=== PATIENT | female | born 1960 | race Caucasian/White ===

== ENCOUNTER 2016-11-20 14:35 | Outpatient (CLI) | payer OTHER ==
[2016-11-20 16:09] LABS: Hematocrit 38.9 % (36.0-47.0); Mean Platelet Volume 7.6 fL (7.4-10.4); White Blood Cell (WBC) Count 9.6 thou/uL (4.8-10.8)
[2016-11-20 16:23] LABS: ALT (SGPT) 10 U/L (8-55); AST (SGOT) 12 U/L (5-34); Alkaline Phosphatase 128 U/L (40-150); Anion Gap 14 mmol/L (10-20); BUN (Urea Nitrogen) 15 mg/dL (9.8-20.1); Bilirubin, Total 0.4 mg/dL (0.2-1.2); Calc. Creatinine Clearance 0 mL/min (70-130); Calcium 9.6 mg/dL (7.8-10.44); Carbon Dioxide 31 mmol/L (22-29); Chloride 100 mmol/L (98-107); Estimated GFR-MDRD 57; Globulin 2.9 g/dL (2.4-3.5); Protein, Total 6.9 g/dL (6.0-8.3)
== END 2016-11-20 14:36 | disposition home or self-care (01) ==
LOC: LABBT 14:35
PROVIDERS: ATTEND Obstetrics & Gynecology
DX: Z01.812 Encounter for preprocedural laboratory examination (principal); N95.0 Postmenopausal bleeding
CPT/HCPCS: 80053; 85027; 86850; 86900; 86901

== ENCOUNTER 2016-11-23 06:01 | Day surgery (SDC) | payer OTHER ==
[2016-11-20 14:58] VITALS: BMI 46.0
[2016-11-23] MEDS ORDERED: Fentanyl 100 MCG/2 ML VIAL ONE ×2 (06:47→08:30)
[2016-11-23] MEDS ORDERED: Midazolam HCl 2 mg/2 ml Vial ONE (07:09)
[2016-11-23] MEDS ORDERED: Propofol 200 MG/20 ML VIAL ONE (07:32)
[2016-11-23] MEDS ORDERED: Glycopyrrolate 0.2 MG/ML 5 ML SYRINGE ONE (07:32)
[2016-11-23] MEDS ORDERED: Ondansetron HCl/PF 4 MG/2 ML Vial ONE (07:32)
[2016-11-23] MEDS ORDERED: Lidocaine 2% PF 10 ML AMP (For Epidural Use) ONE (07:32)
[2016-11-23] MEDS ORDERED: ePHEDrine/0.9% NaCl/PF SYRINGE 50 mg/10 ml ONE (07:32)
[2016-11-23] MEDS ORDERED: PHENYLEPHRINE-NS 100 MCG/ML 10 ML SYRINGE ONE (07:32)
[2016-11-23] MEDS ORDERED: Meperidine HCl/PF 25 MG/ML VIAL ONE (08:22)
--- NOTE | 2016-11-23 08:31 | OP ---
PREOPERATIVE DIAGNOSES: 1. Postmenopausal bleeding. 2. Endometrial biopsy with suspected endometrial polyp versus simple hyperplasia without atypia. POSTOPERATIVE DIAGNOSIS: Postmenopausal bleeding. SURGEON: Malu Sam D.O. PROCEDURES: 1. Diagnostic hysteroscopy. 2. Dilation and curettage. ANESTHESIA: General with LMA. COMPLICATIONS: None. ESTIMATED BLOOD LOSS: Minimal. IV FLUIDS: 1000 mL. URINE OUTPUT: 100 mL urinary output straight catheterization prior to the procedure. HYSTEROSCOPIC FLUID DEFICIT: 130 mL. FINDINGS: Normal appearing external genitalia, normal appearing vaginal and cervical epithelium, normal appearing endometrium with bilateral patent tubal ostia. INDICATIONS FOR THE PROCEDURE: Ms. Nichole De La Vega is a 56-year-old G4, P3 who presented to clinic with complaints of postmenopausal bleeding/discharge. She had undergone a sonogram evaluation which demonstrated the uterus approximately 10 cm in length with a 1.4 cm endometrial stripe. The patient had undergone an endometrial biopsy in clinic and per the pathology report, it is a possible benign polyp versus simple hyperplasia without atypia. The patient was counseled on these findings and diagnostic hysteroscopy with dilation and curettage and possible polypectomy was recommended. PROCEDURE IN DETAIL: The patient was brought to the operating room. She was placed under general anesthesia using LMA. The patient was placed in dorsal lithotomy position. She was prepped and draped in sterile fashion. An official timeout was performed. A single sided speculum was placed in the vagina. The anterior aspect of the cervix was grasped using a single tooth tenaculum. The cervix was sequentially dilated using Patrick dilators. The uterus was sounded to approximately 10 cm. The Truclear hysteroscope was inserted into the uterine cavity withotu difficulty, noting the findings above. The hysteroscope was removed. A dilation and curettage was performed in a circumferential fashion and tissue was collected and appeared adequate amount for pathologic evaluation. The single tooth tenaculum was removed from the cervix and the site was hemostatic. The speculum was removed from the vagina. The patient was placed in supine position and extubated without difficulty. She was transferred the PACU in hemodynamically stable condition. All counts were correct x2. There were no complications. MTDD
[2016-11-23] MEDS ORDERED: Promethazine HCl 25 MG/ML VIAL IM/IV PRN (08:58)
[2016-11-23] MEDS ORDERED: Ondansetron HCl/PF 4 MG/2 ML Vial IVP PRN (08:58)
[2016-11-23] MEDS ORDERED: Meperidine HCl/PF 25 MG/ML VIAL IV PRN (08:58)
[2016-11-23] MEDS ORDERED: Non-Formulary Medication 1 EACH PO PRN (08:58)
[2016-11-23] MEDS ORDERED: HYDROcodone/Acetaminophen 5/325 mg Tablet ONE (09:32)
== END 2016-11-23 10:45 | disposition home or self-care (01) ==
LOC: SDC 06:01
PROVIDERS: ATTEND Obstetrics & Gynecology
PROC: 0UDB7ZX Extraction of Endometrium, Via Natural or Artificial Opening, Diagnostic (ICD-10-PCS; principal; 2016-11-23)
PROC: 0UJD8ZZ Inspection of Uterus and Cervix, Via Natural or Artificial Opening Endoscopic (ICD-10-PCS; principal; 2016-11-23)
DX: N85.02 Endometrial intraepithelial neoplasia [EIN] (principal); Z98.51 Tubal ligation status; Z79.899 Other long term (current) drug therapy
CPT/HCPCS: 88305; 96374; J2001; J2175; J2250; J2405; J2704; J3010

== ENCOUNTER → 2022-06-08 | Outpatient (CLI) | payer BC | LOC: SLEEPLAB 18:00 | PROVIDERS: ATTEND Family Medicine | DX: G47.33 Obstructive sleep apnea (adult) (pediatric) (principal) | CPT/HCPCS: 95800 ==

== ENCOUNTER 2022-07-31 19:00 | Outpatient (CLI) | payer BC | END 2022-07-31 19:01 | disposition home or self-care (01) | LOC: SLEEPLAB 19:00 | PROVIDERS: ATTEND Family Medicine | DX: G47.33 Obstructive sleep apnea (adult) (pediatric) (principal); G47.61 Periodic limb movement disorder; E11.9 Type 2 diabetes mellitus without complications; I10 Essential (primary) hypertension; F41.9 Anxiety disorder, unspecified; E66.9 Obesity, unspecified; R06.83 Snoring | CPT/HCPCS: 95811 ==

== ENCOUNTER 2023-07-21 15:21 | Outpatient (CLI) | payer BC | END 2023-07-21 15:22 | disposition home or self-care (01) | LOC: BICRAD 15:21 | PROVIDERS: ATTEND Internal Medicine | DX: R06.02 Shortness of breath (principal); M47.816 Spondylosis without myelopathy or radiculopathy, lumbar region | CPT/HCPCS: 71046 ==